=== PATIENT | male | born 1955 | race Caucasian/White ===

== ENCOUNTER 2016-08-05 06:36 | Day surgery (SDC) | payer OTHER ==
[2016-07-30 16:02] VITALS: BMI 35.6
[~2016-08-05 06:36] MED LIST: LACTATED RINGERS 1,000 ML IV SCH
[2016-08-05 07:10] VITALS: TEMP 97.3
[2016-08-05 07:23] LABS: Basophils # (A) 0.1 k/uL (0-0.2); Basophils % (A) 1 %; CH 31.8; Eosinophils # (A) 0.2 k/uL (0-0.7); Eosinophils % (A) 1 %; HCT 45.8 % (39.0-53.0); HDW 2.49; HGB 15.4 gm/dL (13.0-17.5); Luc # (Auto) 0.22; Luc % (Auto) 2; Lymphocytes # (A) 3.6 k/uL (1.0-4.8); Lymphocytes % (A) 31 %; MCH 31.5 pg (25.0-35.0); MCHC 33.5 g/dL (31.0-37.0); Mean Platelet Volume 7.2; Monocytes # (A) 0.9 k/uL (0-1.0); Monocytes % (A) 7 %; Neutrophils # (A) 6.9 k/uL (1.3-7.7); Neutrophils % (A) 58 %; RBC 4.87 m/uL (4.30-5.90); RDW 13.7 % (11.5-15.5); WBC 11.8 k/uL (3.8-10.6); WBC (Perox) 11.34
[2016-08-05] MEDS ORDERED: PROPOFOL 10 MG/ML 20 ML VIAL IV ONE (07:56)
--- NOTE | 2016-08-05 08:03 | P.GSHP ---
History of Present Illness H&P Date: 08/05/16 Chief Complaint: Screening colonoscopy This a 60-year-old male who presents today for screening colonoscopy. He denies a significant GI complaints. His last colonoscopy was over 10 years ago. - Constitutional Constitutional: Reports as per HPI Past Medical History Past Medical History: Deep Vein Thrombosis (DVT), GERD/Reflux, Hyperlipidemia, Hypertension History of Any Multi-Drug Resistant Organisms: None Reported Additional Past Surgical History / Comment(s): EGD, BILATERAL CATARACT SURGERY Past Anesthesia/Blood Transfusion Reactions: No Reported Reaction Past Psychological History: No Psychological Hx Reported Smoking Status: Never smoker Past Alcohol Use History: Rare Past Drug Use History: None Reported - Past Family History Mother Family Medical History: No Reported History Medications and Allergies Home Medications Medication Instructions Recorded Confirmed Type Atenolol [Tenormin] 100 mg PO HS 07/30/16 08/05/16 History Lovastatin [Mevacor] 10 mg PO HS 07/30/16 08/05/16 History Omeprazole 20 mg PO HS 07/30/16 08/05/16 History hydrALAZINE HCL [Apresoline] 50 mg PO HS 07/30/16 08/05/16 History Allergies Allergy/AdvReac Type Severity Reaction Status Date / Time No Known Allergies Allergy Verified 07/30/16 15:41 Surgical - Exam Vital Signs Pulse Resp BP Pulse Ox 77 20 143/43 95 08/05/16 07:05 08/05/16 07:05 08/05/16 07:05 08/05/16 07:05 - General well developed, no distress - Eyes PERRL - ENT normal pinna - Neck no masses - Respiratory normal expansion - Cardiovascular Rhythm: regular - Abdomen Abdomen: soft, non tender Results - Labs 08/05/16 07:12 Abnormal Lab Results - Last 24 Hours (Table) 08/05/16 Range/Units 07:12 WBC 11.8 H (3.8-10.6) k/uL Assessment and Plan Plan: We'll perform screening colonoscopy.
--- NOTE | 2016-08-05 08:20 | P.OP ---
Date of Procedure: 08/05/16 Preoperative Diagnosis: Screening colonoscopy Postoperative Diagnosis: Normal colonoscopy Procedure(s) Performed: Colonoscopy Implants: Anesthesia: MAC Surgeon: Marino Carmona Pathology: none sent Condition: stable Disposition: PACU Indications for Procedure: Operative Findings: Description of Procedure: PROCEDURE: The patient was placed on the endoscopy table in the lateral position. Digital rectal examination was performed which revealed no abnormalities. The prostate was symmetrical without nodules. Flexible colonoscope was then placed in the patient's anus and passed throughout the entire colon. The ileocecal valve was visualized. The cecum, ascending, transverse, descending and sigmoid colon were normal. The rectum was normal as well. There were no masses, polyps or diverticula noted in the entire colon. SUMMARY OF FINDINGS: Normal colonoscopy.
[2016-08-05 08:40] VITALS: BP 118/71; PULSE 64; RESP 16
== END 2016-08-05 09:06 | disposition home or self-care (01) ==
LOC: ORWHC2ENDO 06:36
PROVIDERS: ATTEND Surgery
DX: Z12.11 Encounter for screening for malignant neoplasm of colon (principal); I10 Essential (primary) hypertension; E78.5 Hyperlipidemia, unspecified; K21.9 Gastro-esophageal reflux disease without esophagitis; Z79.899 Other long term (current) drug therapy; Z86.718 Personal history of other venous thrombosis and embolism
CPT/HCPCS: 85025; J2704; G0121

== ENCOUNTER → 2019-04-25 | Outpatient (CLI) | payer OTHER ==
[2019-04-25 14:37] VITALS: BP 129/85; PULSE 71; TEMP 98.1; BMI 34.0
--- NOTE | 2019-04-28 11:38 | P.HPBAR ---
Bariatric H&P - History & Physicial H&P Date: 04/25/19 History & Physicial: Visit/CC: annual f/u (no problems) Patient initial contact: Initial weight: 136.078 kg Initial weight in pounds: 300.00 Height: 6 ft 1 in Initial BMI: 39.5 Last weight: Current weight: 117.118 kg Current weight in pounds: 258.20 Current BMI: 34.0 [place] body weight (based on NIH guidelines): 83.461 kg Excess body weight loss: 36.0% The patient is a 63 year-old M who presents for Bariatric Assessment. Patient presents today for annual follow-up. He has not been seen several years. Patient states he is gained some weight. He is requesting a fill his LAP-BAND. She denies any significant dysphagia. He has had some minimal GERD. Past Medical History Past Medical History: Blood Disorder, Deep Vein Thrombosis (DVT), GERD/Reflux, Hyperlipidemia, Hypertension, Prostate Disorder Additional Past Medical History / Comment(s): thrombocytopenia (low platelets) History of Any Multi-Drug Resistant Organisms: None Reported Past Surgical History: Bariatric Surgery Additional Past Surgical History / Comment(s): lap band placed 10/19/09, EGD, BILATERAL CATARACT SURGERY, splenectomy, prostate biopsy scheduled for 05/06/19 Past Anesthesia/Blood Transfusion Reactions: No Reported Reaction Additional Past Anesthesia/Blood Transfusion Reaction / Comm: No blood transfusion to date Past Psychological History: No Psychological Hx Reported Smoking Status: Never smoker Past Alcohol Use History: Rare Past Drug Use History: None Reported - Past Family History Mother Family Medical History: No Reported History Surgical - Exam Vital Signs Temp Pulse BP 98.1 F 71 129/85 04/25/19 14:33 04/25/19 14:33 04/25/19 14:33 - General well developed, well nourished, no distress - Eyes PERRL - Abdomen Abdomen: soft, non tender Bariatric Assessment & Plan Plan: Patient has minimal GERD. He'll be observed. The patient will follow-up in one month. We'll evaluate his weight loss next month. If he needs adjustment band we will adjusted. Bariatric Checklist Checklist: Plan: Checklist: EGD: 1. Hiatal hernia: 2. H. Pylori: HgbA1c: Vitamin D: Smoking: Never smoker Primary care physician referral: Elissa Alcocer for low platelets Psychiatry clearance: Cardiology clearance: Sleep study: Diet journal: VTE risk score: VTE risk level: Rehab needs at discharge:
== END | disposition home or self-care (01) ==
LOC: BARWHC3 14:25
PROVIDERS: ATTEND Surgery
DX: Z48.815 Encounter for surgical aftercare following surgery on the digestive system (principal); K21.9 Gastro-esophageal reflux disease without esophagitis; Z98.84 Bariatric surgery status
CPT/HCPCS: 99211

== ENCOUNTER → 2019-04-28 | Outpatient (CLI) | payer OTHER | END | disposition home or self-care (01) | LOC: LABWHC1 13:58 | PROVIDERS: ATTEND Urology | DX: R97.20 Elevated prostate specific antigen [PSA] (principal) | CPT/HCPCS: 36415; 84153 ==

== ENCOUNTER 2021-10-18 08:17 | Day surgery (SDC) | payer MEDICARE, OTHER ==
[2021-10-16 11:48] VITALS: BMI 26.9
[~2021-10-18 08:17] MED LIST changes: +LIDOCAINE 1% (10MG/ML) FOR IV START INTRADERMA PRN
[2021-10-18 08:46] VITALS: TEMP 97.4
[2021-10-18] MEDS ORDERED: PROPOFOL 10 MG/ML 20 ML VIAL IV ONE (09:54)
[2021-10-18] MEDS ORDERED: LIDOCAINE 2% INJ 20 MG/ML (2 ML VIAL) ONE (09:54)
--- NOTE | 2021-10-18 10:28 | P.PCN ---
Date of Procedure: 10/18/21 Procedure(s) Performed: BRIEF HISTORY: Patient is a 66-year-old pleasant white male scheduled for an elective colonoscopy as a part of positive cologuard. PROCEDURE PERFORMED: Colonoscopy with snare polypectomy and Endo Clip placement. PREOPERATIVE DIAGNOSIS: Positive cologuard. IV sedation per Anesthesia. PROCEDURE: After informed consent was obtained, the patient, was brought into the endoscopy unit. IV sedation was administered by Anesthesia under continuous monitoring. Digital rectal examination was normal. Initially the Olympus CF-160 flexible video colonoscope was then inserted in the rectum, gradually advanced into the cecum without any difficulty. Careful examination was performed as the scope was gradually being withdrawn. Ileocecal valve and the appendiceal orifice were visualized and appeared normal. Prep was excellent. Mucosa of the cecum and a 5 mm and 1 cm polyp removed by snare polypectomy. In the ascending colon there was another 5 mm and 1 cm polyp removed with snare polypectomy. In the transverse colon there was a 1 cm and 1.5 cm broad-based polyps removed by snare polypectomy area in the descending colon there were total of 8 polyps measuring between 5 mm to 1.5 cm in size removed by snare polypectomy. Rest of the, ascending colon, transverse colon, descending colon, sigmoid colon, and rectum appeared normal. Retroflexion was performed in the rectum and no lesions were seen. The patient tolerated the procedure well. IMPRESSION: 5 mm 1 cm cecal polyp status post polypectomy 1 cm and 5 mm ascending colon polyp status post polypectomy . 1 cm and 1.5 cm transverse colon polyp status post polypectomy 8 polyps in the descending colon measuring between 5 mm to 1.5 cm in size removed by snare polypectomy RECOMMENDATIONS: Findings of this examination were discussed with the patient as well as his family. He was advised to follow with the biopsy results. If the biopsy reveals adenoma he can have a repeat colonoscopy in 3 years.
[2021-10-18 10:47] VITALS: BP 131/83; PULSE 57; RESP 16
== END 2021-10-18 11:00 | disposition home or self-care (01) ==
LOC: ORWHC2ENDO 08:17
PROVIDERS: ATTEND Internal Medicine Gastroenterology
DX: D12.2 Benign neoplasm of ascending colon (principal); D12.0 Benign neoplasm of cecum; D12.4 Benign neoplasm of descending colon; D12.3 Benign neoplasm of transverse colon; I10 Essential (primary) hypertension; E78.5 Hyperlipidemia, unspecified; K21.9 Gastro-esophageal reflux disease without esophagitis; Z86.718 Personal history of other venous thrombosis and embolism; Z79.899 Other long term (current) drug therapy
CPT/HCPCS: 88305; 45385; J2704; J2001